=== PATIENT | female | born 1985 | race Caucasian/White ===

== ENCOUNTER 2019-03-28 07:28 | Day surgery (SDC) | payer BC ==
[~2019-03-28] VITALS: Ht 162.6 cm; Wt 54.0 kg
[~2019-03-28 07:28] MED LIST: CEFAZOLIN SOD 1 GM in D5W 50 ML IV ONE
[2019-03-28] MEDS ORDERED: fentaNYL CITRATE/PF 100 MCG/2 ML AMP IVP PRN ×2 (08:30)
[2019-03-28] MEDS ORDERED: ONDANSETRON HCL 4 MG/2 ML VIAL IVP PRN (08:30)
[2019-03-28] MEDS: ALBUTEROL SULFATE 0.083% 2.5 MG/3 ML VIAL.NEB INH ONE ×2 (09:03)
[2019-03-28] MEDS ORDERED: BUPIVACAINE LIPOSOME/PF 266 MG/20 ML VIAL INFIL ONE (09:37)
[2019-03-28] MEDS ORDERED: PROPOFOL 200MG/ 20ML VIAL (DIPRIVAN) IV ONE (09:51)
[2019-03-28] MEDS ORDERED: BUPIVACAINE /EPINEPHRINE/PF 0.5% 30 ML VIAL INJ ONE (09:51)
[2019-03-28] MEDS ORDERED: SEVOFLURANE 15 MIN GAS INH ONE (09:51)
[2019-03-28] MEDS ORDERED: ONDANSETRON HCL 4 MG/2 ML VIAL IVP ONE (09:51)
[2019-03-28] MEDS ORDERED: fentaNYL CITRATE/PF 100 MCG/2 ML AMP IVP ONE (09:51)
[2019-03-28] MEDS ORDERED: NS IRRIG SOLN 1000 ML IR ONE (09:51)
[2019-03-28] MEDS ORDERED: MIDAZOLAM HCL 5 MG/5 ML VIAL IVP ONE (09:51)
[2019-03-28] MEDS ORDERED: HYDROcodone/ACETAMIN 5-325 MG TAB (NORCO/ VICODIN) PO PRN (11:00)
[2019-03-28] MEDS ORDERED: ONDANSETRON HCL 4 MG/2 ML VIAL IM PRN (11:00)
[2019-03-28] MEDS ORDERED: OXYCODONE/ACETAMINOPHEN 5-325 TABLET PO PRN (11:00)
[2019-03-28] MEDS: KETOROLAC TROMETHAMINE 30 MG VIAL IVP PRN (11:39)
[2019-03-28] MEDS ORDERED: KETOROLAC TROMETHAMINE 30 MG VIAL ONE (11:50)
[2019-03-28 14:00] VITALS: BP_SYST 126
== END 2019-03-28 13:05 | disposition home or self-care (01) ==
LOC: SDS 07:28 → SMU 07:28 → SDS 13:05
PROVIDERS: ATTEND Specialist
DX: K64.5 Perianal venous thrombosis (principal); N90.89 Other specified noninflammatory disorders of vulva and perineum; J45.909 Unspecified asthma, uncomplicated
CPT/HCPCS: 46320; 56620; 88304; 88305; 94640; 94760; C9290; J0690; J1885; J2250; J2405; J2704; J3010; J3490; J7060; J7120; J7613